=== PATIENT | male | born 1990 | race Caucasian/White ===

== ENCOUNTER 2021-12-10 15:17 | Emergency (ER) | payer OTHER ==
[2021-12-10 15:21] VITALS: BP 136/81; PULSE 87; RESP 18; TEMP 97; BMI 29.5
[2021-12-10] MEDS ORDERED: FLUORESCEIN NA 1 EA STRIP OD ONE (16:13)
[2021-12-10] MEDS ORDERED: TETRACAINE 0.5% OPHTH SOLN 2 ML BOTTLE OD ONE (16:14)
[2021-12-10] MEDS ORDERED: TETRACAINE 0.5% OPHTH SOLN 2 ML BOTTLE ONE (16:15)
[2021-12-10] MEDS ORDERED: FLUORESCEIN NA 1 EA STRIP ONE (16:15)
== END 2021-12-10 16:47 | disposition home or self-care (01) ==
LOC: JERFT 15:17
DX: S05.02XA Injury of conjunctiva and corneal abrasion without foreign body, left eye, initial encounter (principal); W45.8XXA Other foreign body or object entering through skin, initial encounter
CPT/HCPCS: 99283-25